=== PATIENT | male | born 1950 | race Caucasian/White ===

== ENCOUNTER → 2016-07-01 | Outpatient (CLI) | payer OTHER, MEDICARE | LOC: BHFA 11:30 | PROVIDERS: ATTEND Internal Medicine Cardiovascular Disease | DX: R94.31 Abnormal electrocardiogram [ECG] [EKG] (principal) ==

== ENCOUNTER → 2016-07-03 | Outpatient (CLI) | payer OTHER, MEDICARE ==
[~2016-07-03] MED LIST: GADOBUTROL 10 ML VIAL IVP ONE
--- NOTE | 2016-07-07 10:03 | MR ---
MRI of the Pelvis (Prostate) Without and With IV Contrast Indication: History of prostate adenocarcinoma. Restaging. Technique: Large [id number] axial T1, small [id number]-td-[id number] axial, coronal, and sagittal T2, axial T 1, diffusion-weighted imaging and dynamic postcontrast small [id number]-xy-[id number] axial T1 fat-suppressed im aging through the pelvis. The data was submitted to the [employer] software for multiparametric analysis . 7.5 mL of Gadavist were uneventfully intravenously administered. Comparison: None. Findings: The prostate gland is normal size measuring 33 mL (4.6 x 4.3 x 3.4 cm). A left apical peripheral zone nodule in the posterior lateral distribution, measuring 1.3 x 0.8 x 0.8 cm (best demonstrated on images 17 and 18 of the axial T2) has mild restricted diffusion with ADC va lues ranging between 600 and 900. No focal enhancement on the postcontrast dynamic imaging. The nodul e minimally bulges the capsule 1 to 2 mm (best demonstrated on sagittal image 17 of the T2 sequence). The peripheral zone otherwise has relatively well-preserved T2 hyperintense signal with no other foc al nodules. Minimal amorphous and linear decreased signal is present in the peripheral zone at the ba se. Central gland is mildly enlarged with benign hyperplastic nodules. The seminal vesicles have normal T2 hyperintense signal. No enlarged lymph nodes throughout the image d portion of the pelvis and abdomen. No bone marrow replacing lesions. Bilateral inguinal hernia meshes are in place from previous hernia repair. The urinary bladder has mi nimal wall thickening and trabeculation. No diverticula or mass. No dilation of the distal ureters. Impression: 1. Mildly suspicious nodule in the left peripheral zone at the apex resulting in minimal bulge of the capsule. If the patient's Betzy score is less than 7, recommend imaging-guided biopsy for restagin g. 2. PI-RADS: 4. 3. No regional lymphadenopathy, bone marrow replacing lesion, or gross extracapsular extension. Comment: The case was reviewed with Drs. Maurilio Pierre and Jourdan Ahumada.
== END ==
LOC: FIMAGING 14:24
PROVIDERS: ATTEND Family Medicine
DX: Z12.9 Encounter for screening for malignant neoplasm, site unspecified (principal); Z85.46 Personal history of malignant neoplasm of prostate
CPT/HCPCS: 72197; A9585

== ENCOUNTER → 2016-09-17 | Outpatient (CLI) | payer OTHER, MEDICARE | LOC: BHFA 10:00 | PROVIDERS: ATTEND Internal Medicine Interventional Cardiology | DX: R94.31 Abnormal electrocardiogram [ECG] [EKG] (principal) ==

== ENCOUNTER → 2017-12-09 | Outpatient (CLI) | payer OTHER, MEDICARE | LOC: BHFA 09:30 | PROVIDERS: ATTEND Internal Medicine Cardiovascular Disease | DX: I25.10 Atherosclerotic heart disease of native coronary artery without angina pectoris (principal) | CPT/HCPCS: 78452; 93017; A9500 ==

== ENCOUNTER → 2017-12-10 | Outpatient (CLI) | payer OTHER, MEDICARE | LOC: BHFA 10:00 | PROVIDERS: ATTEND Internal Medicine Cardiovascular Disease | DX: I25.10 Atherosclerotic heart disease of native coronary artery without angina pectoris (principal) ==